=== PATIENT | male | born 1955 | race African-American/Black ===

== ENCOUNTER 2016-11-14 20:57 | Emergency (ER) | payer BC ==
[2016-11-14 21:40] LABS: URINE SOURCE CLEAN CATCH
[2016-11-14 21:44] LABS: URINE APPEARANCE CLEAR; URINE BILIRUBIN NEG (NEG); URINE BLOOD 1+ (NEG); URINE COLOR DK YELLOW; URINE GLUCOSE NEG (NEG); URINE KETONE NEG (NEG); URINE LEUKOCYTE ESTERASE 1+ (NEG); URINE NITRATE POS (NEG); URINE PH 5.5 (5-8); URINE PROTEIN NEG (NEG); URINE SPECIFIC GRAVITY 1.022 (1.003-1.035)
[2016-11-14 21:46] LABS: URINE BACTERIA AUWI NEG (NEGATIVE); URINE SQUAMOUS EPITHELIAL CELL NONE SEEN /[HPF]; UWBCS1 AUWI 0-2 (0-5)
[2016-11-14 21:56] LABS: CULTURE INDICATED? NO
== END 2016-11-15 00:28 | disposition home or self-care (01) ==
LOC: CED 20:57
PROVIDERS: Emergency Medicine
DX: R33.9 Retention of urine, unspecified (principal); I10 Essential (primary) hypertension
CPT/HCPCS: 51702; 81003; 99283